=== PATIENT | female | born 1985 | race Caucasian/White ===

== ENCOUNTER 2019-11-24 13:48 | Emergency (ER) | payer BC, SELFPAY ==
[2019-11-24 13:55] VITALS: BP 148/92; PULSE 90; RESP 16; TEMP 37; O2SAT 98
--- NOTE | 2019-11-24 14:16 | ED.DENTAL ---
HPI - Dental/Oral General Chief complaint: Dental/Oral Stated complaint: tooth pain Time Seen by Provider: 11/24/19 14:03 Source: patient and RN notes reviewed Mode of arrival: ambulatory Limitations: no limitations History of Present Illness HPI Narrative: Patient presents today complaining of left lower wisdom tooth pain x5 days.Describes the pain as dull. Currently rates her pain 6/10 and has been taking ibuprofen without relief. Pain increases with eating. No recent antibiotic use. Patient has a dentist, but we do not belong. MD Complaint: tooth pain Related Data Allergies Allergy/AdvReac Type Severity Reaction Status Date / Time tramadol Allergy Unknown VOMITING, Verified 11/24/19 14:01 CHAIM Review of Systems Review of Systems: Narrative: CONSTITUTIONAL: Denies body aches, fever, chills, or sweats. EYES: Denies visual changes, redness, or discharge. ENT: Denies rhinorrhea, congestion, sore throat, or otalgia.+Left lower dental pain CARDIOVASCULAR: Denies chest pain, palpitations, or edema. RESPIRATORY: Denies cough or dyspnea. GASTROINTESTINAL: Denies abdominal pain, nausea, vomiting, or diarrhea. GENITOURINARY: Denies dysuria or hematuria. SKIN: Denies rash, itching, or wounds. MUSCULOSKELETAL: Denies back pain, joint pain, or myalgia. NEUROLOGIC: Denies headache, numbness, tingling, or weakness. PSYCH: Denies depression or anxiety. [facility] Past Medical History Medical History (Updated 11/24/19 @ 14:20 by Sierra Lou, [facility], ) Anxiety Panic attacks Comments At time of signature, I have reviewed and agree with nursing past medical, surgical, social and family history unless otherwise noted. Please see nursing chart for further information. There is no relevant family history pertinent to the presenting complaint Exam Narrative: Exam Narrative: GENERAL: Well-appearing, well-nourished, and in no acute distress. HEAD: Normocephalic, atraumatic. EYES: EOMI. No redness or drainage. Conjunctivae normal. ENT: Mucous membranes pink and moist. Throat normal. Uvula midline.Tooth #17 is fractured. Surrounding gumline is edematous and overlying part of the tooth. No facial swelling noted. No obvious periapical abscess noted. NECK: Normal AROM. Supple. No lymphadenopathy. CHEST: No respiratory distress. Clear to auscultation. HEART: Regular rate and rhythm. No murmur appreciated. Normal peripheral pulses. EXTREMITIES: Normal range of motion. No edema. SKIN: Warm, dry, no rash. Capillary refill normal. Normal skin turgor. NEURO: No focal deficits. Alert and oriented x3. Gait steady. PSYCH: Normal affect. No signs of depression or anxiety. Course Vital Signs Vital signs: Vital Signs Temperature 98.6 F 11/24/19 13:55 Pulse Rate 90 11/24/19 13:55 Respiratory Rate 16 11/24/19 13:55 Blood Pressure 148/92 H 11/24/19 13:55 Pulse Oximetry 98 11/24/19 13:55 Temperature 98.6 F 11/24/19 13:55 Pulse Rate 90 11/24/19 13:55 Respiratory Rate 16 11/24/19 13:55 Blood Pressure 148/92 H 11/24/19 13:55 Pulse Oximetry 98 11/24/19 13:55 Reviewed. Pt has been instructed to follow up with her PCP regarding her elevated blood pressure today. MDM - Dental/Oral Differential Diagnosis Differential diagnosis: Likely gingival abscess, dental caries, toothache, dental abscess and fracture of tooth Critical Care Time Critical Care Time Critical Care Time: No Discharge Plan Discharge Clinical Impression: Dental abscess Patient Disposition: Home, Self-Care Condition: Stable Instructions: Antibiotic Form, Dental Abscess (ED) Additional Instructions: Please take the amoxicillin as prescribed until gone. Continue Tylenol or ibuprofen at home for pain. Call and make an appointment to follow-up with a dentist as soon as possible for further evaluation and treatment, as dental care cannot be provided at [facility]. Your blood pressure was elevated above 120/80 today at [facility]
== END 2019-11-24 14:23 | disposition home or self-care (01) ==
PROVIDERS: Emergency Provider Nurse Practitioner
DX: K04.7 Periapical abscess without sinus (principal)
CPT/HCPCS: 99213; G0463

== ENCOUNTER 2019-11-27 16:24 | Emergency (ER) | payer BC, SELFPAY ==
[2019-11-27 16:39] VITALS: BP 143/87; PULSE 81; RESP 17; TEMP 36.9; O2SAT 99
--- NOTE | 2019-11-27 17:15 | ED.GENADULT ---
HPI - General Adult General Chief complaint: Dental/Oral Stated complaint: tooth pain Time Seen by Provider: 11/27/19 17:15 Source: patient and RN notes reviewed Mode of arrival: ambulatory Limitations: no limitations History of Present Illness HPI narrative: 34-year-old female presents with complaints of increase LT lower dental pain for the past 8 days. Christi says she was treated here at this [facility] on 11/24/19 given Amoxicillin has been taking it without relief. Denies any drainage. No fever. Jaw swelling. No neck swelling. No limitation with speaking or swallowing. Has history of dental caries. No dental trauma. No oral lesions. Exacerbating factors consist of chewing on LT side, eating and drinking cold items. No relieving factors. No dentures or bridges. Tolerating liquids well. LPM 2 weeks ago. The patient reports she have not been diagnosed with COVID-19. The patient reports she is not waiting for the results of a COVID-19 lab test. The patient reports she do not have fever, chills, weakness, or fatigue. The patient reports she do not have a new or worsening cough or shortness of breath. Denies chest pain. The patient reports she do not have any rhinorrhea, congestion, sore throat, nausea, vomiting, abdominal pain, and diarrhea. Tolerating po intake well. Denies recent traveling. Denies concerns for COVID-19 or exposures been home with limited outdoor exposure except for essential household needs and return home. At this time, patient is not suspected of having COVID-19. Some parts of this dictation were generated by voice recognition software and may contain typographical and/or grammatical inaccuracies. Related Data Allergies Allergy/AdvReac Type Severity Reaction Status Date / Time tramadol Allergy Unknown VOMITING, Verified 11/24/19 14:01 HIVES paper tape Allergy Redness of Uncoded 11/27/19 16:40 Skin Review of Systems Review of Systems: Narrative: CONSTITUTIONAL: Denies fever, chills, sweats. EYES: Denies visual changes, redness, discharge. ENT: Denies rhinorrhea, congestion, sore throat, otalgia. Complains of LT lower dental pain. CARDIOVASCULAR: Denies chest pain, palpitations, edema. RESPIRATORY: Denies dyspnea, wheezing, cough. GASTROINTESTINAL: Denies abdominal pain, nausea, vomiting, diarrhea. GENITOURINARY: Denies dysuria, hematuria, abnormal discharge. SKIN: Denies rash or itching. MUSCULOSKELETAL: Denies acute back pain, joint pain, or myalgia. NEUROLOGIC: Denies numbness or focal weakness. PSYCHIATRIC: Denies anxiety or depression. All systems reviewed & are unremarkable except as noted in HPI and below. [facility] Past Medical History Medical History (Updated 11/28/19 @ 00:00 by Edward Rodríguez) Anxiety Panic attacks Surgical History Surgical History (Updated 11/27/19 @ 19:17 by CORIE Carson) No significant past surgical history Family History Family History (Updated 11/27/19 @ 19:18 by CORIE Carson) Father , Complications related to Influenza and Pneumonia No problems noted. Mother Breast cancer Social History Social History (Updated 11/27/19 @ 19:19 by CORIE Carson) Smoking packs per day: 0.5 Smoking cigarettes per day: 10.0 Years smoked: 13 Smoking pack-years: 6.50 Smoking status: Current every day smoker Tobacco type: cigarettes Second hand tobacco smoke exposure: Yes Alcohol intake: never Substance use: current Substance use type: marijuana Living arrangements: with family Occupation/Education: unemployed Gender identity (if verbalized by the patient): Female Comments At time of signature, agree with nurse past medical, surgical, social, and family history. There is no relevant family history pertinent to the presenting complaint. Exam Narrative: Exam Narrative: GENERAL: This is a well-nourished, well-developed patient, in no apparent distress. Talks in ful
== END 2019-11-27 17:29 | disposition home or self-care (01) ==
PROVIDERS: Emergency Provider Nurse Practitioner Family
DX: K08.89 Other specified disorders of teeth and supporting structures (principal); K04.7 Periapical abscess without sinus; F17.210 Nicotine dependence, cigarettes, uncomplicated
CPT/HCPCS: 99213; G0463

== ENCOUNTER 2021-02-02 17:59 | Emergency (ER) | payer OTHER, SELFPAY ==
--- NOTE | ~2021-02-02 | XR_ITS ---
EXAMINATION: XR foot RT min 3V DATE: 02/02/2021 18:27 INDICATION: Right foot pain TECHNIQUE: Dorsoplantar, lateral, and 2 oblique views of the right foot were obtained. COMPARISON: None. FINDINGS: Bone alignment is normal. There is no fracture. The joint spaces are normal. There is mild dorsal soft tissue swelling of the foot overlying the metatarsals. IMPRESSION: 1. Soft tissue swelling without acute osseous abnormality. Reviewed, dictated and finalized at location A.
[2021-02-02 18:18] VITALS: BP 151/73; PULSE 96; RESP 20; TEMP 37.2; O2SAT 99
--- NOTE | 2021-02-02 18:27 | PC.NURSE ---
PT DECLINED ICE FOR COMFORT AND WHEELCHAIR TO RADIOLOGY
--- NOTE | 2021-02-02 18:56 | ED.LOWEXIN ---
HPI - Extremity Injury (Lower) General Chief Complaint: Extremity Injury, Lower Stated Complaint: right foot injury Time Seen by Provider: 02/02/21 18:51 Source: patient and RN notes reviewed Mode of arrival: ambulatory Limitations: no limitations History of Present Illness HPI Narrative: Patient presents today complaining of right foot injury. 2 days ago she dropped part of a couch on her foot while moving it. Denies numbness or tingling in the foot or toes. Currently rates her pain 5/10, which increases with weightbearing. She has tried no medication for symptoms prior to arrival, but did ice it initially. MD complaint: foot injury Related Data Allergies Allergy/AdvReac Type Severity Reaction Status Date / Time tramadol Allergy Unknown VOMITING, Verified 11/24/19 14:01 HIVES paper tape Allergy Redness of Uncoded 11/27/19 16:40 Skin Review of Systems Review of Systems: CONSTITUTIONAL: Denies body aches, fever, chills, or sweats. EYES: Denies visual changes, redness, or discharge. ENT: Denies rhinorrhea, congestion, sore throat, or otalgia. CARDIOVASCULAR: Denies chest pain, palpitations, or edema. RESPIRATORY: Denies cough or dyspnea. GASTROINTESTINAL: Denies abdominal pain, nausea, vomiting, or diarrhea. GENITOURINARY: Denies dysuria or hematuria. SKIN: Denies rash, itching, or wounds. MUSCULOSKELETAL: Denies back pain, or myalgia. + Right foot injury NEUROLOGIC: Denies headache, numbness, tingling, or weakness. PSYCH: Denies depression or anxiety. [facility] Past Medical History Medical History Anxiety Panic attacks Surgical History Surgical History No significant past surgical history Family History Family History Father , Complications related to Influenza and Pneumonia No problems noted. Mother Breast cancer Social History Social History Smoking packs per day: 0.5 Smoking cigarettes per day: 10.0 Years smoked: 13 Smoking pack-years: 6.50 Smoking status: Current every day smoker Tobacco type: cigarettes Second hand tobacco smoke exposure: Yes Alcohol intake: never Substance use: current Substance use type: marijuana Gender identity (if verbalized by the patient): Female Comments At time of signature, I have reviewed and agree with nursing past medical, surgical, social and family history unless otherwise noted. Please see nursing chart for further information. There is no relevant family history pertinent to the presenting complaint Exam Narrative: GENERAL: Well-appearing, well-nourished, and in no acute distress. HEAD: Normocephalic, atraumatic. EYES: EOMI. No redness or drainage. Conjunctivae normal. ENT: Mucous membranes pink and moist. NECK: Normal AROM. CHEST: No respiratory distress. EXTREMITIES: Right foot: Tenderness to the proximal medial foot with mild localized edema. Ecchymosis to the distal foot at the base of the toes with mild tenderness at this area without edema. Distal sensation intact. Capillary refill normal. Pedal pulse normal. Full range of motion of the toes and ankle. Pain increases slightly at the base of the toes with range of motion. SKIN: Warm, dry, no rash. Capillary refill normal. Normal skin turgor. NEURO: No focal deficits. Alert and oriented x3. Gait steady. PSYCH: Normal affect. No signs of depression or anxiety. Course Vital Signs Vital signs: Vital Signs Temperature 98.9 F 02/02/21 18:18 Pulse Rate 96 02/02/21 18:18 Respiratory Rate 20 02/02/21 18:18 Blood Pressure 151/73 H 02/02/21 18:18 Pulse Oximetry 99 02/02/21 18:18 Temperature 98.9 F 02/02/21 18:18 Pulse Rate 96 02/02/21 18:18 Respiratory Rate 20 02/02/21 18:18 Blood Pressure 1
== END 2021-02-02 19:06 | disposition home or self-care (01) ==
PROVIDERS: Emergency Provider Nurse Practitioner
DX: S90.31XA Contusion of right foot, initial encounter (principal); W20.8XXA Other cause of strike by thrown, projected or falling object, initial encounter; F17.210 Nicotine dependence, cigarettes, uncomplicated
CPT/HCPCS: 73630; 99213; G0463

== ENCOUNTER 2022-05-06 18:12 | Emergency (ER) | payer OTHER, SELFPAY ==
[2022-05-06 18:26] VITALS: PULSE 95; RESP 18; TEMP 37; O2SAT 99
--- NOTE | 2022-05-06 18:43 | ED.URI ---
HPI - URI/Sore Throat General Chief Complaint: Upper Respiratory Infection Stated Complaint: sore throat Time Seen by Provider: 05/06/22 18:44 History of Present Illness HPI Narrative: 36-year-old female presented for complaint of sore throat, onset this evening. She endorses feeling fine today but when she attempted to swallow her dinner she felt burning and pain. She also endorses mild right ear pain. She denies sinus congestion, cough, shortness of breath, wheezing, fevers or chills. She denies sick contacts. Has not taken anything for symptoms. Related Data Home Medications Medication Instructions Recorded Confirmed bupropion HCl 150 mg 24 hr tablet, mg PO 05/06/22 05/06/22 extended release hydroxyzine HCl 25 mg tablet mg 05/06/22 Allergies Allergy/AdvReac Type Severity Reaction Status Date / Time tramadol Allergy Unknown VOMITING, Verified 11/24/19 14:01 HIVES paper tape Allergy Redness of Uncoded 11/27/19 16:40 Skin Review of Systems Review of Systems: CONSTITUTIONAL: Denies body aches, fever, chills, or sweats. EYES: Denies visual changes, redness, or discharge. ENT: Denies rhinorrhea, congestion CARDIOVASCULAR: Denies chest pain, palpitations, or edema. RESPIRATORY: Denies dyspnea. GASTROINTESTINAL: Denies abdominal pain, nausea, vomiting, or diarrhea. SKIN: Denies rash, itching, or wounds. MUSCULOSKELETAL: Denies back pain, joint pain, or myalgia. NEUROLOGIC: Denies headache PMFSH Past Medical History Medical History Anxiety Panic attacks Surgical History Surgical History No significant past surgical history Family History Family History Father , Complications related to Influenza and Pneumonia No problems noted. Mother Breast cancer Social History Social History Smoking packs per day: 0.5 Smoking cigarettes per day: 10.0 Years smoked: 13 Smoking pack-years: 6.50 Smoking status: Current every day smoker Tobacco type: cigarettes Second hand tobacco smoke exposure: Yes Alcohol intake: never Substance use: current Substance use type: marijuana Gender identity (if verbalized by the patient): Female Exam Narrative: GENERAL: well-appearing, no acute distress. EYES: conjunctivae clear ENT: Mucous membranes moist. TMs pearly alfredo with normal light reflex bilaterally; no tragal tenderness. Oropharynx severely erythematous without lesions. Tonsils enlarged 3+ touching uvula, without exudate. No drooling, no hoarseness, no trismus, uvula midline. No tripod positioning, hot potato voice, or soft palate swelling. NECK: Supple. No lymphadenopathy CHEST: Clear to auscultation, breath sounds equal. No respiratory distress, speaks in full sentences. HEART: Regular rate and rhythm. No murmur heard. SKIN: Warm, dry, no rash. NEURO: Alert and oriented x3. Course Course Emergency Course: Patient is aware of diagnosis, understands and agrees to treatment plan. Anticipatory guidance given. Patient agrees to follow-up as directed and is aware of reasons to seek care at the emergency department. Portions of this record may have been created with voice recognition software Level of Care: Express Care Visit Vital Signs Vital signs: Vital Signs Temperature 98.6 F 05/06/22 18:26 Pulse Rate 95 05/06/22 18:26 Respiratory Rate 18 05/06/22 18:26 Pulse Oximetry 99 05/06/22 18:26 Oxygen Delivery Room Air 05/06/22 18:26 Temperature 98.6 F 05/06/22 18:26 Pulse Rate 95 05/06/22 18:26 Respiratory Rate 18 05/06/22 18:26 Pulse Oximetry 99 05/06/22 18:26 Oxygen Delivery Room Air 05/06/22 18:26 MDM - URI/Sore Throat MDM Narrative Medical decision making narrative: strep result
[2022-05-06 18:59] VITALS: BP 150/100
== END 2022-05-06 19:00 | disposition home or self-care (01) ==
PROVIDERS: Emergency Provider Nurse Practitioner Family; PCP Family Medicine
DX: J02.9 Acute pharyngitis, unspecified (principal); F17.210 Nicotine dependence, cigarettes, uncomplicated; F41.9 Anxiety disorder, unspecified; F41.0 Panic disorder [episodic paroxysmal anxiety]
CPT/HCPCS: 87081; 87880; 99213; G0463